=== PATIENT | male | born 1945 | race Caucasian/White ===

== ENCOUNTER 2016-11-04 14:28 | Emergency (ER) | payer BC, MEDICARE, OTHER ==
--- NOTE | 2016-11-04 15:26 | ER Document Report ---
ED Medical Screen (RME) - General Chief Complaint: Leg Swelling Stated Complaint: DOPPLER Mode of Arrival: Wheelchair Information source: Patient Notes: 71-year-old male presents to emergency department referred by PCP for arterial and venous study due to left lower leg pain, swelling, discoloration over the last 4 days. Patient reports history of pulmonary embolism in 2013. Denies chest pain or shortness of breath. Palpable left dorsalis pedis. I have greeted and performed a rapid initial assessment of this patient. A comprehensive ED assessment and evaluation of the patient, analysis of test results and completion of the medical decision making process will be conducted by additional ED providers. TRAVEL OUTSIDE OF THE [place] IN LAST 30 DAYS: No - Related Data Allergies/Adverse Reactions: No Known Drug Allergies Allergy (Verified 11/04/16 15:17) simvastatin [From Zocor] Allergy (Verified 11/04/16 15:17) Past Medical History - Social History Chew tobacco use (# tins/day): No Frequency of alcohol use: None Drug Abuse: None - Past Medical History Cardiac Medical History: Reports: Hx Hypertension Renal/ Medical History: Denies: Hx Peritoneal Dialysis GI Medical History: Reports: Hx Gastroesophageal Reflux Disease Psychiatric Medical History: Denies: Hx Depression Past Surgical History: Reports: Hx Appendectomy, Hx Tonsillectomy - Immunizations Hx Diphtheria, Pertussis, Tetanus Vaccination: Yes Physical Exam - Vital signs Vitals: Temp Pulse Resp BP Pulse Ox 98.1 F 96 18 139/82 H 100 11/04/16 15:12 11/04/16 15:12 11/04/16 15:12 11/04/16 15:12 11/04/16 15:12 - General General appearance: Appears well, Alert In distress: None - Respiratory Respiratory status: No respiratory distress Course - Vital Signs Vital signs: Temp Pulse Resp BP Pulse Ox 98.1 F 96 18 139/82 H 100 11/04/16 15:12 11/04/16 15:12 11/04/16 15:12 11/04/16 15:12 11/04/16 15:12
--- NOTE | 2016-11-04 15:58 | ER Document Report ---
ED Extremity Problem, Lower - General Chief Complaint: Leg Swelling Stated Complaint: DOPPLER Mode of Arrival: Wheelchair Notes: The patient is a 71-year-old male, past medical history prior DVT and PE 2 years ago (no longer on anticoagulation), presents from his primary care office after he mentioned that his left calf is swollen over the past 2 days. The swelling and pain started after he went for a PT run. He denies injury, numbness, tingling, open wounds, falls, chest pain, shortness of breath, fevers , rash or difficulty walking. TRAVEL OUTSIDE OF THE [place] IN LAST 30 DAYS: No - Related Data Allergies/Adverse Reactions: No Known Drug Allergies Allergy (Verified 11/04/16 15:17) simvastatin [From Zocor] Allergy (Verified 11/04/16 15:) Past Medical History - General Information source: Patient - Social History Smoking Status: Never Smoker Chew tobacco use (# tins/day): No Frequency of alcohol use: None Drug Abuse: None Family History: Reviewed & Not Pertinent Patient has suicidal ideation: No Patient has homicidal ideation: No - Past Medical History Cardiac Medical History: Reports: Hx Hypertension Renal/ Medical History: Denies: Hx Peritoneal Dialysis GI Medical History: Reports: Hx Gastroesophageal Reflux Disease Psychiatric Medical History: Denies: Hx Depression Past Surgical History: Reports: Hx Appendectomy, Hx Tonsillectomy - Immunizations Hx Diphtheria, Pertussis, Tetanus Vaccination: Yes Review of Systems - Review of Systems Notes: REVIEW OF SYSTEMS: CONSTITUTIONAL: -fevers, -chills EENT: -eye pain, -difficulty swallowing, -nasal congestion CARDIOVASCULAR:-chest pain, -syncope. RESPIRATORY: -cough, -SOB GASTROINTESTINAL: -abdominal pain, -nausea, -vomiting, -diarrhea GENITOURINARY: -dysuria, -hematuria MUSCULOSKELETAL: +left leg pain and swelling, -back pain, -neck pain SKIN: -rash or skin lesions. HEMATOLOGIC: -easy bruising or bleeding. LYMPHATIC: -swollen, enlarged glands. NEUROLOGICAL: -altered mental status or loss of consciousness, -headache, - neurologic symptoms PSYCHIATRIC: -anxiety, -depression. ALL OTHER SYSTEMS REVIEWED AND NEGATIVE. Physical Exam - Vital signs Vitals: Temp Pulse Resp BP Pulse Ox 98.1 F 96 18 139/82 H 100 11/04/16 15:12 11/04/16 15:12 11/04/16 15:12 11/04/16 15:12 11/04/16 15:12 - Notes Notes: PHYSICAL EXAMINATION: GENERAL: Well-appearing, well-nourished and in no acute distress. HEAD: Atraumatic, normocephalic. EYES: Pupils equal round and reactive to light, extraocular movements intact, sclera anicteric, conjunctiva are normal. ENT: nares patent, oropharynx clear without exudates. Moist mucous membranes. NECK: Normal range of motion, supple without lymphadenopathy LUNGS: Breath sounds clear to auscultation bilaterally and equal. No wheezes rales or rhonchi. HEART: Regular rate and rhythm without murmurs ABDOMEN: Soft, nontender, normoactive bowel sounds. No guarding, no rebound. No masses appreciated. EXTREMITIES: Strong left DP and PT pulses. Mild left calf swelling and tenderness. No thigh tenderness. Normal range of motion, no pitting or edema. No cyanosis. NEUROLOGICAL: Cranial nerves grossly intact. Normal speech, normal gait. Normal sensory, motor, and reflex exams. PSYCH: Normal mood, normal affect. SKIN: Warm, Dry, normal turgor, no rashes or lesions noted. Course - Re-evaluation Re-evalutation: 11/04/16 17:45 patient with left popliteal DVT. No signs or symptoms of PE at this time. Attempted to call Dr. Ling to discuss anticoagulation options. Left a message. Patient says that he had success with Xarelto. No recent bleeding or GI bleeds. Will discharge home with his first 21 day prescription for Xarelto. Given strict return precautions and he understands. - Vital Signs Vital signs: Temp Pulse Resp BP Pulse Ox 98.1 F 96 18 139/82 H 100 11/04/16 15:12 11/04/16 15:12 11/04/16 15:12 11/04/16 15:12 11/04/16 15:12 - Laboratory Result Diagrams: 11/04/16 15:42 11/04/16 15:42 Laboratory results interpreted by me: 11/04/16 15:42 Glucose 129 H Discharge - Discharge Clinical Impression: DVT (deep venous thrombosis) Qualifiers: DVT location: lower extremity Affected thrombotic vein of extremity: popliteal Laterality: left Chronicity: acute Qualified Code(s): I82.432 - Acute embolism and thrombosis of left popliteal vein Condition: Stable Disposition: HOME, SELF-CARE Additional Instructions: You have a DVT in your left lower extremity. Take the Xarelto as directed. You must follow-up with Dr. Ling this week to have your symptoms rechecked. Return immediately to the emergency room if you notice any chest pain or shortness of breath or any other concerns. DVT Outpatient Treatment You have deep venous thrombosis (DVT) in your leg. DVT or phlebitis is blood clots within the large deep veins. This causes redness, warmth, and tenderness of the involved area. This problem is more likely to affect people who smoke, take estrogen, have had recent surgery, have been immobile, have had previous DVT, or who have serious underlying health conditions. Keep your legs elevated. A heating pad, 20 minutes every two hours, can help with leg pain. For now, keep walking to a minimum. Don't do any physical work, lifting, or exercise. If the doctor has recommended medication for you, it 's important that you take it. You will be started on a blood-thinning medication. Follow-up is important. Your medication needs to be monitored. Call or return at once if you cough blood or vomit blood, pass black or bloody stool, or have any other unusual bleeding. DVT can cause serious complications. The clots can damage the valves in the veins, leading to chronic pain and swelling. If a clot breaks loose and floats upstream, it can stick in the lungs. A clot in the lungs, called pulmonary embolism, can be life-threatening. Call the doctor or return if you develop increasing leg pain and swelling, leg discoloration, fever, chest pain, or shortness of breath. Prescriptions: Rivaroxaban [Xarelto 15 mg Tablet] 15 mg PO BID #42 tablet
[2016-11-04 16:04] LABS: ABSOLUTE EOSINOPHILS # (AUTO) 0.2 10^3/uL (0.0-0.6); ABSOLUTE LYMPHOCYTES (AUTO) 1.4 10^3/uL (0.5-4.7); ABSOLUTE MONOCYTES (AUTO) 0.7 10^3/uL (0.1-1.4); ABSOLUTE NEUT (AUTO) 5.3 10^3/uL (1.7-8.2); BASOPHILS % (AUTO) 0.4 % (0-2); EOSINOPHILS % (AUTO) 2.1 % (0-6); HEMATOCRIT 42.3 % (37.9-51.0); HEMOGLOBIN 14.4 g/dL (13.5-17.0); HGB HCT DIFFERENCE 0.9; MEAN CORPUSCULAR HEMOGLOBIN 29.7 pg (27.0-33.4); MEAN CORPUSCULAR VOLUME 87 fl (80-97); MONOCYTES % (AUTO) 9.6 % (3-13); RED BLOOD COUNT 4.84 10^6/uL (4.35-5.55); RED CELL DISTRIBUTION WIDTH 13.7 % (11.5-14.0); SEGMENTED NEUTROPHILS % (AUTO) 68.9 % (42-78); WHITE BLOOD COUNT 7.6 10^3/uL (4.0-10.5)
[2016-11-04 16:25] LABS: ALANINE AMINOTRANSFERASE 43 U/L (21-72); ALBUMIN 4.3 g/dL (3.5-5.0); ALKALINE PHOSPHATASE 70 U/L (38-126); ANION GAP 13 (5-19); ASPARTATE AMINO TRANSFERASE 32 U/L (17-59); BILIRUBIN,TOTAL 0.9 mg/dL (0.2-1.3); BLOOD UREA NITROGEN 17 mg/dL (7-20); CARBON DIOXIDE 24 mmol/L (22-30); CHLORIDE 102 mmol/L (98-107); CREATININE RESULT 1.14 mg/dL (0.52-1.25); GLUCOSE 129 mg/dL (75-110); POTASSIUM 4.3 mmol/L (3.6-5.0); SODIUM 139.4 mmol/L (137-145); TOTAL PROTEIN 6.6 g/dL (6.3-8.2)
--- NOTE | 2016-11-04 17:07 | XCELERA REPORT ---
[address] [address] Lower Extremity Venous Evaluation Name: BESS BUITRAGO III Age: 71 yrs Gender: Male : 1945 Patient Status: Preadmit Patient Location: ER Study Date: 11/04/2016 04:20 PM Procedure: Color flow and duplex imaging of the veins of the left lower extremity as well as the right Common Femoral vein. Reason For Study: LLE pain, swelling, discoloration Ordering Physician: MISTY CALDERON Performed By: Adal Penny Right Sided Venous Evaluation The right common femoral vein is fully compressible. Spontaneous and phasic flow is present in the right common femoral vein. Left Sided Venous Evaluation Abnormal vessel filling wall, lack of compression and limited Colour flow in the Popliteal and infrageniculate vessels, both Posterior Tibial and 1 of2 Peroneal veins. Reflux in the Greater Saphenous vein also. Critical Findings Discussed with Dr Zhao at 1700 hours. Interpretation Summary Positive for DVT in the left Popliteal vein and down. Limited reflux as well. : MISTY CALDERON > Kirill Goddard
[2016-11-04 17:13] LABS: PROTHROMBIN TIME 12.5 SEC (11.4-15.4)
[2016-11-04 17:14] LABS: PARTIAL THROMBOPLASTIN TIME 31.2 SEC (23.5-35.8)
[2016-11-04 17:51] VITALS: BP 122/78
== END 2016-11-04 17:55 | disposition home or self-care (01) ==
LOC: ER 14:28
DX: I82.432 Acute embolism and thrombosis of left popliteal vein (principal); R22.42 Localized swelling, mass and lump, left lower limb; I10 Essential (primary) hypertension; K21.9 Gastro-esophageal reflux disease without esophagitis; Z86.711 Personal history of pulmonary embolism; Z86.718 Personal history of other venous thrombosis and embolism
CPT/HCPCS: 36415; 80053; 85025; 85610; 85730; 93971; 99284

== ENCOUNTER → 2017-10-19 | Outpatient (CLI) | payer BC, MEDICARE, OTHER ==
--- NOTE | 2017-10-19 11:49 | XCELERA REPORT ---
[address] [address] Lower Extremity Venous Evaluation Name: BESS BUITRAGO III Age: 72 yrs Gender: Male : 1945 Patient Status: Outpatient Patient Location: Study Date: 10/19/2017 08:58 AM Procedure: Color flow and duplex imaging of the veins of the left lower extremity as well as the right Common Femoral vein. Reason For Study: HX ACUTE EMBOLISM Ordering Physician: JOSEPH ARGUELLES Performed By: Kylie Enrique Right Sided Venous Evaluation The right common femoral vein is fully compressible. Spontaneous and phasic flow is present in the right common femoral vein. Left Sided Venous Evaluation Normal vessel filling wall to wall, compression and augmentation as well as Colour flow down to the infrageniculate veins. Interpretation Summary No duplex evidence of DVT or obstruction in the left lower extremity nor in the right Common Femoral vein. : JOSEPH ARGUELLES > Kirill Goddard
== END ==
LOC: SP 08:49
PROVIDERS: ATTEND Internal Medicine
DX: I82.412 Acute embolism and thrombosis of left femoral vein (principal)
CPT/HCPCS: 93971

== ENCOUNTER 2018-03-23 11:33 | Emergency (ER) | payer BC, MEDICARE, OTHER ==
[2018-03-23] MEDS ORDERED: HYDROMORPHONE HCL INJ/PF 2 MG/ML AMPULE IV ONE (12:14)
[2018-03-23] MEDS ORDERED: CEFTRIAXONE INJ 1000 MG VIAL IV ONE ×2 (12:37→15:30)
[2018-03-23] MEDS ORDERED: NORMAL SALINE 1000 ML 1,000 ML IV ONE ×2 (12:39→15:31)
[2018-03-23 12:58] LABS: ABSOLUTE BASOPHILS # (AUTO) 0.1 10^3/uL (0.0-0.2); ABSOLUTE LYMPHOCYTES (AUTO) 1.5 10^3/uL (0.5-4.7); ABSOLUTE MONOCYTES (AUTO) 0.4 10^3/uL (0.1-1.4); ABSOLUTE NEUT (AUTO) 12.4 10^3/uL (1.7-8.2); BASOPHILS % (AUTO) 0.5 % (0-2); EOSINOPHILS % (AUTO) 0.2 % (0-6); HEMOGLOBIN 15.1 g/dL (13.5-17.0); LYMPHOCYTES % (AUTO) 10.7 % (13-45); MEAN CORPUSCULAR HEMOGLOBIN 29.6 pg (27.0-33.4); MEAN CORPUSCULAR HGB CONC 34.3 g/dL (32.0-36.0); MEAN CORPUSCULAR VOLUME 86 fl (80-97); MONOCYTES % (AUTO) 2.7 % (3-13); PLATELET COUNT 238 10^3/uL (150-450); RED BLOOD COUNT 5.09 10^6/uL (4.35-5.55); RED CELL DISTRIBUTION WIDTH 13.7 % (11.5-14.0); SEGMENTED NEUTROPHILS % (AUTO) 85.9 % (42-78); TOTAL CELLS COUNTED % (AUTO) 100 %; WHITE BLOOD COUNT 14.5 10^3/uL (4.0-10.5)
[2018-03-23 13:00] LABS: ALANINE AMINOTRANSFERASE 38 U/L (21-72); ALBUMIN 4.2 g/dL (3.5-5.0); ALKALINE PHOSPHATASE 64 U/L (38-126); ANION GAP 14 (5-19); ASPARTATE AMINO TRANSFERASE 33 U/L (17-59); BILIRUBIN,DIRECT 0.7 mg/dL (0.0-0.4); BLOOD UREA NITROGEN 17 mg/dL (7-20); CALCIUM 9.9 mg/dL (8.4-10.2); CARBON DIOXIDE 22 mmol/L (22-30); CHLORIDE 102 mmol/L (98-107); GLUCOSE 119 mg/dL (75-110); LIPASE 105.4 U/L (23-300); POTASSIUM 4.3 mmol/L (3.6-5.0); SODIUM 138.2 mmol/L (137-145); TOTAL PROTEIN 6.9 g/dL (6.3-8.2)
[2018-03-23 13:06] LABS: APPEARANCE,URINE CLOUDY; BILIRUBIN,URINE NEGATIVE (NEGATIVE); GLUCOSE, URINE NEGATIVE (NEGATIVE); KETONES,URINE NEGATIVE (NEGATIVE); LEUKOCYTE ESTERASE,URINE LARGE (NEGATIVE); NITRITE,URINE POSITIVE (NEGATIVE); PROTEIN,URINE 100 mg/dL (NEGATIVE); URINE SPECIFIC GRAVITY 1.018; UROBILINOGEN,URINE NEGATIVE mg/dL (<2.0)
[2018-03-23 13:07] LABS: COLOR,URINE YELLOW
--- NOTE | 2018-03-23 13:10 | ER Document Report ---
ED General - General Chief Complaint: Urinary Problem Stated Complaint: URINARY ISSUES Time Seen by Provider: 03/23/18 12:35 Notes: Patient is here because he is having blood in his urine. Patient was seen by his urologist, Dr. Evans, yesterday and had a CT scan done which showed that the patient has both a bladder stone and a kidney stone. From what the patient tells me, Dr. Evans attempted to remove the bladder stone, but his prostate was too big and would not allow the stone to be extracted. Last evening, patient began to have shakes and chills and sweats and noted blood in his urine about 4: 30 PM. He says he is urinating every 15 minutes and all of them have blood mixed in. Patient has been drinking water, but not much else orally. He has been nauseated but not vomiting. Somewhat short of breath at times. Feels like he has had a fever and has chills, sweats, and shakes. Patient is on Xarelto because he has had a history of DVTs and PEs. TRAVEL OUTSIDE OF THE [place] IN LAST 30 DAYS: No - Related Data Allergies/Adverse Reactions: No Known Drug Allergies Allergy (Verified 03/23/18 11:35) Past Medical History - Social History Smoking Status: Unknown if Ever Smoked Family History: Reviewed & Not Pertinent - Past Medical History Cardiac Medical History: Reports: Hx Hypertension Endocrine Medical History: Denies: Hx Diabetes Mellitus Type 1, Hx Diabetes Mellitus Type 2 GI Medical History: Reports: Hx Gastroesophageal Reflux Disease Past Surgical History: Reports: Hx Appendectomy, Hx Tonsillectomy - Immunizations Hx Diphtheria, Pertussis, Tetanus Vaccination: Yes Review of Systems - Review of Systems Notes: REVIEW OF SYSTEMS: CONSTITUTIONAL : Denies fever. Heart rate at triage 148, blood pressure 106/79 , respirations 20, and O2 sat 94% on room air. EENT: Denies eye, ear, nose or mouth or throat pain or other symptoms. CARDIOVASCULAR: Denies chest pain. RESPIRATORY: Denies cough, chest congestion, occasional shortness of breath. GASTROINTESTINAL: Some nausea but denies abdominal pain or vomiting, or diarrhea. GENITOURINARY: Blood in urine, see HPI, but no difficulty or painful urinating, urinary frequency. MUSCULOSKELETAL: Denies back or neck pain. Denies joint pain or swelling. SKIN: Denies rash or skin lesions. Skin feels cool and lightly diaphoretic to the touch. No rashes. NEUROLOGICAL: Denies LOC or altered mental status. Denies headache. Denies sensory loss or motor deficits. ALL OTHER SYSTEMS REVIEWED AND NEGATIVE. Physical Exam - Vital signs Vitals: Temp Pulse BP Pulse Ox 98.6 F 149 H 106/79 93 03/23/18 11:38 03/23/18 11:38 03/23/18 11:38 03/23/18 11:38 Interpretation: Tachycardic - Notes Notes: PHYSICAL EXAMINATION: GENERAL: Well-appearing, in no acute distress. Tachycardia. O2 sat 90% on room air at bedside so started on low-flow O2. HEAD: Atraumatic, normocephalic. EYES: Pupils equal round and reactive to light, extraocular movements intact. ENT: oropharynx clear without exudates. Moist mucous membranes. NECK: Normal range of motion, supple. LUNGS: Breath sounds clear and equal bilaterally. No wheezes, rhonchi, or rales heard. HEART: Regular rate and rhythm without murmurs. Tachycardia of about 120 by me at bedside. ABDOMEN: Soft, nontender. No guarding or rebound. No masses. No masses. No bruits heard. BACK: No tenderness throughout entire back. EXTREMITIES: Normal range of motion without pain. NEUROLOGICAL: Normal speech. Normal sensory, motor, and reflex exams. Awake, alert, and oriented x3. Cranial nerves normal. PSYCH: Normal mood, normal affect. SKIN: Warm, dry, no rashes. Course - Re-evaluation Re-evalutation: 03/23/18 13:10 Discussed patient with his urologist, Dr. Evans, and I will try to make arrangements for the patient to be transferred to [facility] for admission. IV fluids and min initiated. Patient is receiving his Rocephin. 03/23/18 15:08 Patient has had 2 L of IV fluids now and blood pressure still is 95 systolic although it was 108 systolic just short time ago. Heart rate is currently about 108. Spoke with Dr. Garcia, hospitalist translation director at [facility], in [place] who accepted the patient in transfer., Will start another liter of saline (his third) Blood pressure still 80 systolic so we will start a low flow rate of Levophed. 03/23/18 17:13 Had problems with the [place] and whether is draining properly. We have irrigated and moved around in now it seems to be flowing very well. Patient looks good even though his blood pressures recorded in the 80s. He is on a very low-dose of Levophed, 4 micrograms per minute. I am not sure if it is helping or not, but will try to wean him off of it as soon as possible. Patient 's chest x-ray showed no cardiomegaly or heart failure. BNP is normal. I think we can continue to push some fluids, even though we are at 4 L now. - Vital Signs Vital signs: Temp Pulse Resp BP Pulse Ox 99.8 F 149 H 22 H 99/64 L 95 03/23/18 16:36 03/23/18 11:38 03/23/18 16:36 03/23/18 16:36 03/23/18 16:36 - Laboratory Result Diagrams: 03/23/18 12:00 03/23/18 12:00 Laboratory results interpreted by me: 03/23/18 03/23/18 03/23/18 12:00 12:00 12:40 WBC 14.5 H Seg Neutrophils % 85.9 H Lymphocytes % 10.7 L Monocytes % 2.7 L Absolute Neutrophils 12.4 H VBG pH VBG pCO2 Creatinine 1.45 H Est GFR ( Amer) 58 L Est GFR (Non-Af Amer) 48 L Glucose 119 H Total Bilirubin 2.0 H Direct Bilirubin 0.7 H Urine Protein 100 H Urine Blood LARGE H Urine Nitrite POSITIVE H Ur Leukocyte Esterase LARGE H 03/23/18 12:54 WBC Seg Neutrophils % Lymphocytes % Monocytes % Absolute Neutrophils VBG pH 7.47 H VBG pCO2 32.2 L Creatinine Est GFR ( Amer) Est GFR (Non-Af Amer) Glucose Total Bilirubin Direct Bilirubin Urine Protein Urine Blood Urine Nitrite Ur Leukocyte Esterase - EKG Interpretation by Me EKG shows normal: Sinus rhythm Rate: Tachycardia Rhythm: NSR When compared to previous EKG there are: No significant change - Compared to EKG of June 26, 2014. Critical Care Note - Critical Care Note Total time excluding time spent on procedures (mins): 60
[2018-03-23] MEDS ORDERED: ACETAMINOPHEN 325 MG TABLET PO ONE ×2 (13:11→18:07)
--- NOTE | 2018-03-23 13:38 | RADIOLOGY REPORT (SQ) ---
EXAM DESCRIPTION: CHEST SINGLE VIEW COMPLETED DATE/TIME: 03/23/2018 1:25 pm REASON FOR STUDY: Short of breath, Hx DVT, PE COMPARISON: Chest CT scan dated December 2014 EXAM PARAMETERS: NUMBER OF VIEWS: One view. TECHNIQUE: Single frontal radiographic view of the chest acquired. RADIATION DOSE: NA LIMITATIONS: None. FINDINGS: LUNGS AND PLEURA: No opacities, masses or pneumothorax. No pleural effusion. MEDIASTINUM AND HILAR STRUCTURES: No masses. Contour normal. HEART AND VASCULAR STRUCTURES: Heart normal in size. Normal vasculature. BONES: No acute findings. HARDWARE: None in the chest. OTHER: No other significant finding. IMPRESSION: NO ACUTE RADIOGRAPHIC FINDING IN THE CHEST. TECHNICAL DOCUMENTATION: JOB ID: [id number] [employer]- All Rights Reserved Reading location - IP/workstation name: [email or web address]
[2018-03-23] MEDS: NORMAL SALINE 1000 ML 1,000 ML IV PRN ×2 (13:45→16:23)
[2018-03-23 13:55] LABS: VENOUS BLOOD BASE EXCESS -0.1 mmol/L; VENOUS BLOOD HCO3 22.8 mmol/L (20-32); VENOUS BLOOD PCO2 32.2 mmHg (35-63); VENOUS BLOOD PH 7.47 (7.30-7.42)
[2018-03-23] MEDS ORDERED: DEXTROSE 5%-WATER 250 ML with NOREPINEPHRINE BITARTRATE 4 MG IV PRN ×2 (15:33)
[2018-03-23] MEDS ORDERED: NOREPINEPHRINE BITARTRATE INJ/PF 4 MG/4 ML SDV IV ONE (15:52)
[2018-03-23] MEDS ORDERED: NORMAL SALINE 500 ML IV ONE (18:28)
--- NOTE | 2018-03-23 20:43 | EKG REPORT ---
SEVERITY:- BORDERLINE ECG - SINUS TACHYCARDIA BORDERLINE T ABNORMALITIES, INFERIOR LEADS : Confirmed by: Monica Recio MD 23-Mar-2018 20:42:41
--- NOTE | 2018-03-23 21:56 | ER Document Report ---
Doctor's Note Notes: 03/23/18 21:55 I took over care of this patient from Dr. Zhao. In summary this is a patient who presents with probable urosepsis after having prostate manipulation yesterday. Initially the patient did present in severe sepsis although has had significant improvement after receiving a total of 5 L of fluid. Initially when I accept this patient he was on a norepinephrine infusion at 2 mcg which I discontinued as his map was resting in the mid 70s. Since that time patient has continued to maintain an acceptable map currently at 76, blood pressure 105 and 64. His heart rate is 87 down from 140 at the time of presentation. Lactate is down trended. I do not believe the patient requires an intensive care bed and Lamar Alberto did declined to admit the patient to the ICU given his normalization of vitals and no longer having a pressor requirement. I contacted back Lamar Alberto and updated in the care of this patient. I am awaiting a callback from the accepting physician to arrange the bed type that this patient is appropriate for.
[2018-03-23] MEDS ORDERED: IBUPROFEN 600 MG TABLET PO ONE (23:13)
[2018-03-23 23:36] VITALS: BP 117/73
== END 2018-03-23 23:36 | disposition short-term general hospital (02) ==
LOC: ER 11:33
DX: N21.0 Calculus in bladder (principal); R31.9 Hematuria, unspecified; R11.0 Nausea; I10 Essential (primary) hypertension; K21.9 Gastro-esophageal reflux disease without esophagitis; Z79.02 Long term (current) use of antithrombotics/antiplatelets; Z86.718 Personal history of other venous thrombosis and embolism; Z86.711 Personal history of pulmonary embolism
CPT/HCPCS: 93005; 99291; 96361; 51702; 96375; 96365; 36415; 87040; 87086; 83690; 85025; 87088; 80053; 81001; 84484; 87186; 82803; 83605; 83880; 71045; 93010; J3490; J1170; J0696; J7060; J7030; J7040; C1758